=== PATIENT | male | born 1965 | race Caucasian/White ===

== ENCOUNTER → 2021-04-17 09:15 | Outpatient (CLI) | payer OTHER, SELFPAY ==
[2021-04-17 10:15] LABS: Add Manual Diff / Slide Review NO; Basophils Absolute Auto 100 /uL (0-100); Eosinophils Absolute Auto 300 /uL (0-450); Eosinophils Percent Auto 6.1 % (2-4); Hematocrit 44.6 % (41-53); Lymphocytes Absolute Auto 2400 /uL (1100-4500); Lymphocytes Percent Auto 44.1 % (25-40); Mean Corpuscular HGB Conc 33.7 % (30-36); Mean Corpuscular Hemoglobin 28.9 PG (26-34); Mean Corpuscular Volume 85.7 fL (80-100); Monocytes Absolute Auto 400 /uL (0-900); Neutrophils Absolute Auto 2300 /uL (1500-7000); Neutrophils Percent Auto 41.8 % (50-75); Platelet Count 182 X10^3/uL (150-400); Red Cell Distribution Width 13.2 % (11.6-14.8); White Blood Cell Count 5.4 X10^3/uL (4.5-11.0)
[2021-04-17 11:06] LABS: Alanine Aminotransferase 30 IU/L (<50); Albumin 4.5 g/dL (3.5-5.0); Albumin Globulin Ratio 1.7 (1.0-2.8); Alkaline Phosphatase 41 U/L (38-126); Aspartate Aminotransferase 30 IU/L (17-59); BUN Creatinine Ratio 18.4 (6-22); Bilirubin Total 0.7 mg/dL (0.2-1.3); Blood Urea Nitrogen 16 mg/dL (9-20); Calcium 9.5 mg/dL (8.4-10.2); Carbon Dioxide 27 mmol/L (22-32); Chloride 101 mmol/L (98-107); Cholesterol 207 mg/dL (140-199); Estimated Glomerular Filt Rate > 60.0 mL/min (>60); Globulin 2.6 g/dL (1.7-4.1); Glucose 98 mg/dL (70-100); HDL Cholesterol 62 mg/dL (40-60); HEMOLYSIS < 15 (0-50); LDL Cholesterol Calculated 117 mg/dL (<100); Potassium 4.3 mmol/L (3.4-5.1); Sodium 136 mmol/L (137-145); Total Protein 7.1 g/dL (6.3-8.2); Triglycerides 139 mg/dL (35-150)
[2021-04-17 11:21] LABS: Creatinine Urine Random 95.8 mg/dL
[2021-04-17 11:29] LABS: Prostate Specific Antigen Scrn 0.539 ng/mL (0.1-4.0)
[2021-04-17 11:43] LABS: TSH w/ Reflex to FT4 1.28 uIU/mL (0.47-4.68)
[2021-04-17 12:04] LABS: Microalbumin Urine Random < 0.6 mg/dL (0-1.6)
== END ==
PROVIDERS: PCP Family Medicine; Referring Provider Family Medicine; Visit Provider Family Medicine
DX: E78.5 Hyperlipidemia, unspecified (principal); I10 Essential (primary) hypertension; I77.89 Other specified disorders of arteries and arterioles; Z12.5 Encounter for screening for malignant neoplasm of prostate
CPT/HCPCS: 36415; 80053; 80061; 82043; 82570; 84443; 85025; G0103

== ENCOUNTER → 2022-03-01 09:26 | Outpatient (CLI) | payer OTHER, SELFPAY | PROVIDERS: PCP Family Medicine; Visit Provider Registered Nurse | DX: J02.9 Acute pharyngitis, unspecified (principal) | CPT/HCPCS: 87070 ==

== ENCOUNTER → 2023-10-21 09:05 | Outpatient (CLI) | payer OTHER, SELFPAY ==
[2023-10-21 10:15] LABS: Add Manual Diff / Slide Review NO; Basophils Absolute Auto 0 /uL (0-100); Basophils Percent Auto 0.6 % (0-2); Eosinophils Absolute Auto 200 /uL (0-450); Lymphocytes Absolute Auto 2700 /uL (1100-4500); Lymphocytes Percent Auto 45.5 % (25-40); Mean Corpuscular Hemoglobin 29.5 PG (26-34); Mean Corpuscular Volume 86.7 fL (80-100); Monocytes Absolute Auto 400 /uL (0-900); Monocytes Percent Auto 7.1 % (3-14); Neutrophils Absolute Auto 2600 /uL (1500-7000); Neutrophils Percent Auto 43.8 % (50-75); Platelet Count 186 X10^3/uL (150-400); Red Blood Cell Count 5.42 X10^6/uL (4.5-5.9); Red Cell Distribution Width 13.3 % (11.6-14.8); White Blood Cell Count 5.9 X10^3/uL (4.5-11.0)
[2023-10-21 10:20] LABS: Creatinine Urine Random 101.4 mg/dL
[2023-10-21 10:31] LABS: Microalbumin Urine Random < 0.6 mg/dL (0-1.6)
[2023-10-21 10:47] LABS: TSH w/ Reflex to FT4 2.25 uIU/mL (0.47-4.68)
[2023-10-21 11:42] LABS: Alanine Aminotransferase 30 IU/L (<50); Albumin 5.2 g/dL (3.5-5.0); Albumin Globulin Ratio 1.9 (1.0-2.8); Alkaline Phosphatase 53 U/L (38-126); Aspartate Aminotransferase 31 IU/L (17-59); BUN Creatinine Ratio 17.8 (6-22); Bilirubin Total 0.8 mg/dL (0.2-1.3); Blood Urea Nitrogen 16 mg/dL (9-20); Calcium 9.9 mg/dL (8.4-10.2); Carbon Dioxide 25 mmol/L (22-32); Chloride 105 mmol/L (98-107); Cholesterol 235 mg/dL (140-199); Estimated Glomerular Filt Rate > 60 mL/min (>60); Globulin 2.8 g/dL (1.7-4.1); Glucose 105 mg/dL (80-110); HDL Cholesterol 65 mg/dL (40-60); HEMOLYSIS < 15 (0-50); LDL Cholesterol Calculated 137 mg/dL (<100); Potassium 4.7 mmol/L (3.4-5.1); Sodium 138 mmol/L (137-145); Triglycerides 163 mg/dL (35-150)
[2023-10-21 12:12] LABS: Prostate Specific Antigen 0.543 ng/mL (0.10-4.00)
[2023-10-22 08:10] LABS: Apolipoprotein B 108 mg/dL (<90)
== END ==
PROVIDERS: PCP Family Medicine; Referring Provider Family Medicine; Visit Provider Family Medicine
DX: Z00.00 Encounter for general adult medical examination without abnormal findings (principal); I10 Essential (primary) hypertension; E78.2 Mixed hyperlipidemia
CPT/HCPCS: 36415; 80053; 80061; 82043; 82172; 82570; 83695; 84153; 84443; 85025

== ENCOUNTER → 2023-10-25 09:02 | Outpatient (CLI) | payer OTHER, SELFPAY ==
[2023-10-26 08:45] LABS: Fecal Immunochemical Test Negative (Negative)
== END ==
PROVIDERS: PCP Family Medicine; Referring Provider Family Medicine; Visit Provider Family Medicine
DX: Z12.11 Encounter for screening for malignant neoplasm of colon (principal)
CPT/HCPCS: 82274

== ENCOUNTER → 2023-11-29 06:50 | Outpatient (CLI) | payer OTHER, SELFPAY ==
--- NOTE | 2023-11-29 06:51 | DI.ECHO.S_ITS ---
[place] [facility]+ [facility] : : [address] : : [place] : : [id number] : : Phone: [phone] Echocardiogram Report + + :Name: DRE CERON Study Date: 11/29/2023 Height: 66 in : :[facility] ReadingLocation: Weight: 152 lb : : Gender: Male BSA: 1.8 m2 : :: 1965 Age: 58 yrs BP: 154/79 mmHg: :Reason For Study: ENLARGED AORTA : :Ordering Physician: DIMITRIS, : :CECI Performed By: Gus Pruitt : :Referring: CECI SHANKS : + + Interpretation Summary Normal left ventricle size with ejection fraction 60-65%. The left atrium is mildly dilated. Mild aortic valve sclerosis. The dimensions of the ascending aorta are normal (2.9 cm). Procedure: A two-dimensional transthoracic echocardiogram with color flow and Doppler was performed. The study quality was technically adequate. There is no prior echocardiogram noted for this patient. The patient was in sinus bradycardia with heart rates between 43-52 bpm during the exam. Left Ventricle: The left ventricle is normal in size and wall thickness. The ejection fraction is estimated to be 60-65%. There are no focal wall motion abnormalities. Diastolic parameters suggest probable normal left ventricular diastolic function and normal filling pressures. Right Ventricle: The right ventricle is normal in size and function. Atria: The left atrium is mildly dilated. The right atrium is borderline dilated. The interatrial septum grossly appears intact with no obvious evidence for an atrial septal defect. Mitral Valve: The mitral valve is normal in structure and function. There is no mitral valve stenosis. There is trace mitral regurgitation. Aortic Valve: The aortic valve is trileaflet. There is mild aortic valve sclerosis. There is no aortic valve stenosis. There is trace aortic regurgitation. Tricuspid Valve: The tricuspid valve is normal. There is no tricuspid stenosis. No tricuspid regurgitation. Pulmonic Valve: The pulmonic valve is not well visualized. There is no pulmonic valvular stenosis. There is trace pulmonic regurgitation. Great Vessels: The aortic root is normal size. The dimensions of the ascending aorta are normal. The IVC is of normal diameter and collapses greater than 50% with a sniff. This suggests a low right atrial pressure of 3 mm Hg. Pericardium/ Pleura There is no pericardial effusion. There is no pleural effusion. MMode/2D Measurements & Calculations LVIDd: 4.6 cm LVOT diam: 2.2 cm LVIDs: 2.8 cm Ao root diam: 3.2 cm FS: 38.7 % asc Aorta Diam: 2.8 cm IVSd: 1.1 cm LVPWd: 1.0 cm LV castillo. diameter/BSA (cm/m^2): 2.6 LV sys. diameter/BSA (cm/m^2): 1.6 LA A2 area: 22.3 cm2 RA long axis: 5.5 cm LA A4 area: 18.6 cm2 RA area: 17.5 cm2 LA length (vol): 5.7 cm RA vol: 47.5 ml LA vol: 62.4 ml RA : 26.7 ml/m2 LA vol index: 35.0 ml/m2 IVC diam: 1.8 cm RVD1 (basal): 3.7 cm RVD2 (mid): 3.3 cm Doppler Measurements & Calculations Ao V2 max: 155.9 cm/sec LVOT Max Heriberto: 115.3 cm/sec Ao V2 mean: 95.7 cm/sec LV V1 max P.3 mmHg Ao max P.7 mmHg LV V1 VTI: 27.6 cm Ao mean P.4 mmHg JORGE LUIS(I,D): 3.0 cm2 Ao V2 VTI: 35.0 cm JORGE LUIS(V,D): 2.8 cm2 sev ratio: 0.79 JORGE LUIS indexed to BSA (cm^2/m^2): 1.7 MV E max heriberto: 87.2 cm/sec PA V2 max: 111.3 cm/sec MV A max heriberto: 62.1 cm/sec PA V2 mean: 73.6 cm/sec MV E/A: 1.4 PA mean P.5 mmHg Med Peak E' Heriberto: 10.8 cm/sec PA pr(Accel): 19.1 mmHg E/E' med: 8.0 Lat Peak E' Heriberto: 10.1 cm/sec E/E' lat: 8.6 E/e' average: 8.3 MV dec time: 0.18 sec SV(LVOT): 105.7 ml Electronically signed by: Chepe Higuera on Reading Physician:11/29/2023 02:04 PM
== END ==
PROVIDERS: PCP Family Medicine; Referring Provider Family Medicine; Visit Provider Family Medicine
DX: I35.8 Other nonrheumatic aortic valve disorders (principal); I77.89 Other specified disorders of arteries and arterioles
CPT/HCPCS: 93306

== ENCOUNTER → 2024-10-24 08:37 | Outpatient (CLI) | payer OTHER, SELFPAY | PROVIDERS: PCP Family Medicine; Referring Provider Family Medicine; Visit Provider Family Medicine | DX: R68.82 Decreased libido (principal) | CPT/HCPCS: 36415; 84402; 84403 ==